=== PATIENT | female | born 1960 | race Caucasian/White ===

== ENCOUNTER → 2023-08-31 11:31 | Outpatient (REF) | payer OTHER, SELFPAY | LOC: HWWDC 11:31 | PROVIDERS: ATTENDING PHYSICIAN Nurse Practitioner | DX: Z12.31 Encounter for screening mammogram for malignant neoplasm of breast (principal) | CPT/HCPCS: 77063; 77067 ==

== ENCOUNTER → 2024-09-27 06:57 | Outpatient (REF) | payer OTHER, SELFPAY | LOC: HWWDC 06:57 | DX: Z12.31 Encounter for screening mammogram for malignant neoplasm of breast (principal) | CPT/HCPCS: 77063; 77067 ==

== ENCOUNTER 2025-03-03 06:19 | Day surgery (SDC) | payer OTHER, SELFPAY | END 2025-03-03 10:17 | disposition home or self-care (01) | LOC: GI 06:19 | PROVIDERS: ATTENDING PHYSICIAN Internal Medicine | DX: Z12.11 Encounter for screening for malignant neoplasm of colon (principal); D12.3 Benign neoplasm of transverse colon; D12.5 Benign neoplasm of sigmoid colon; Z80.0 Family history of malignant neoplasm of digestive organs | CPT/HCPCS: 45385; 45380; 88305 ==